=== PATIENT | male | born 1940 | race Caucasian/White ===

== ENCOUNTER 2017-02-27 13:49 | Emergency (ER) | payer SELFPAY ==
[~2017-02-27] VITALS: Ht 165.1 cm; Wt 67.1 kg
[2017-02-27 14:05] VITALS: BP_SYST 127
--- NOTE | 2017-02-27 17:17 | NUR ---
Patient to ER bed 02 to gown for evaluation. Side rails up.
--- NOTE | 2017-02-27 17:42 | NUR ---
C/O inudrated mass to left scrotum. Patient reports that he has had this in the past multiple times. States that he thinks he need antibiotics.
--- NOTE | 2017-02-27 19:05 | NUR ---
ER Dr. David at bedside examining patient.
--- NOTE | 2017-02-27 19:09 | NUR ---
Patient stable, vital signs within therapeutic range. No signs of distress noted. Will continue to monitor.
[2017-02-27 19:15] VITALS: BP_SYST 133
--- NOTE | 2017-02-27 19:15 | NUR ---
Patient given written and verbal discharge instructions and verbalizes understanding. ER MD discussed with patient the results and treatment provided. Patient in stable condition. ID arm band removed. Patient educated on pain management and to follow up with PMD. Pain Scale 0/10. Opportunity for questions provided and answered.
== END 2017-02-27 19:15 | disposition home or self-care (01) ==
LOC: SED 13:49
DX: N49.2 Inflammatory disorders of scrotum (principal); I10 Essential (primary) hypertension; Z90.89 Acquired absence of other organs
CPT/HCPCS: 76870-TC; 99284